=== PATIENT | male | born 1975 | race Caucasian/White ===

== ENCOUNTER 2018-04-20 14:27 | Emergency (ER) | payer MEDICAID ==
[~2018-04-20] VITALS: Ht 172.7 cm; Wt 68.2 kg
[2018-04-20 19:51] VITALS: BP 135/85
== END 2018-04-20 20:19 | disposition home or self-care (01) ==
LOC: EMS 14:30
DX: B30.9 Viral conjunctivitis, unspecified (principal); K59.00 Constipation, unspecified; F10.10 Alcohol abuse, uncomplicated; Z91.030 Bee allergy status

== ENCOUNTER 2018-04-26 11:00 | Emergency (ER) | payer MEDICAID ==
[~2018-04-26] VITALS: Ht 177.8 cm; Wt 71.8 kg
[2018-04-26] MEDS ORDERED: LIB25 PO (11:27)
[2018-04-26] MEDS ORDERED: POLYETHYLENE GLYCOL 3350 17 GM PACKET PO ONE (14:00)
[2018-04-26 14:51] VITALS: BP 134/81
== END 2018-04-26 15:02 | disposition home or self-care (01) ==
LOC: EMS 11:01
DX: K59.00 Constipation, unspecified (principal); F10.20 Alcohol dependence, uncomplicated; Z88.8 Allergy status to other drugs, medicaments and biological substances
CPT/HCPCS: 74019

== ENCOUNTER 2020-12-16 21:24 | Inpatient (IN) | payer MEDICAID ==
[~2020-12-16] VITALS: Ht 170.2 cm; Wt 77.3 kg
[~2020-12-16 21:24] MED LIST: LIB25 PO
[2020-12-16 23:48] LABS: BASOPHILS % (AUTO) 0.6 % (0.0-2.0); EOSINOPHILS % (AUTO) 0.3 % (1.0-6.0); HEMATOCRIT 46.6 % (41-53); HEMOGLOBIN 15.5 g/dL (13.5-17.5); LYMPHOCYTES # (AUTO) 2.4 K/uL (1.0-4.8); LYMPHOCYTES % (AUTO) 27.1 % (22.0-44.0); MEAN CORPUSCULAR HGB CONC 33.2 G/dL (31.0-37.0); MEAN CORPUSCULAR VOLUME 96 fL (80-100); MONOCYTES # (AUTO) 1.1 K/uL (0.1-1.0); MONOCYTES % (AUTO) 12.4 % (2.0-9.0); NEUTROPHILS # (AUTO) 5.2 K/uL (1.8-7.7); NEUTROPHILS % (AUTO) 59.6 % (40.0-70.0); PLATELET COUNT (AUTO) 290 K/uL (150-450); RED BLOOD CELL COUNT(AUTO) 4.84 MIL/uL (4.50-5.90); RED CELL DISTRIBUTION WIDTH 14.5 % (11.5-14.5)
[2020-12-16 23:57] LABS: ANION GAP 13 mmol/L (8-16); CALCIUM, TOTAL 8.8 mg/dL (8.8-10.5); CARBON DIOXIDE 31 mmol/L (22-29); CHLORIDE 97 mmol/L (98-107); CREATININE 0.81 mg/dL (0.60-1.30); GLOMERULAR FILTR. RATE CALC > 60 mL/min (>60); GLUCOSE,RANDOM 103 mg/dL (70-110); POTASSIUM 3.3 mmol/L (3.5-5.1); SODIUM SERUM 141 mmol/L (136-145); UREA NITROGEN, BLOOD 9 mg/dL (7-18)
[2020-12-17 00:03] LABS: ALANINE AMINOTRANSFERASE 202 U/L (12-78); ALBUMIN 3.8 g/dL (3.4-5.0); ALKALINE PHOSPHATASE 106 U/L (46-116); ASPARTATE AMINOTRANSFERASE 168 U/L (15-37); BILIRUBIN,TOTAL 0.9 mg/dL (0.1-1.0); TOTAL PROTEIN, SERUM 7.8 g/dL (6.4-8.2)
[2020-12-17] MEDS ORDERED: POTASSIUM CHLORIDE 20 MEQ ER TABLET PO ONE (00:15)
[2020-12-17 00:24] LABS: ACETAMINOPHEN < 2 mcg/mL (10-30); SALICYLATE < 2.8 mg/dL (2.8-20.0)
[2020-12-17] MEDS ORDERED: LORazepam 2 MG TABLET PO ONE (00:30)
[2020-12-17] MEDS ORDERED: THIAMINE 100 MG TABLET PO ONE (00:30)
[2020-12-17] MEDS ORDERED: FOLIC ACID 1 MG TABLET PO ONE (00:30)
[2020-12-17] MEDS ORDERED: HALOPERIDOL 5 MG TABLET PO PRN (00:45)
[2020-12-17] MEDS ORDERED: LORazepam 2 MG TABLET PO PRN (00:45)
[2020-12-17] MEDS ORDERED: ZOLPIDEM TARTRATE 10 MG TABLET PO PRN (00:45)
[2020-12-17] MEDS ORDERED: ONDANSETRON HCL 4 MG/2 ML VIAL IVP ONE (01:15)
[2020-12-17] MEDS ORDERED: SODIUM CHLORIDE 0.9% 1,000 ML IV ONE (01:15)
[2020-12-17] MEDS ORDERED: LORazepam 2 MG/ML VIAL IVP ONE (01:15)
[2020-12-17 01:40] LABS: COVID AG,FIA SOURCE NASOPHARYNGEAL
[2020-12-17] MEDS ORDERED: ONDANSETRON HCL 4 MG/2 ML VIAL IVP PRN (03:45)
[2020-12-17] MEDS: 1: MAGNESIUM SULFATE 2 GM, MVI, ADULT NO.1 WITH VIT K 10 ML, THIAMINE 100 MG, FOLIC ACID IV SCH ×15 (04:40→21:12)
[2020-12-17] MEDS ORDERED: MAGNESIUM OXIDE 400 MG TABLET PO PRN (06:30)
[2020-12-17] MEDS ORDERED: POTASSIUM CHLORIDE 20 MEQ ER TABLET PO PRN (06:30)
[2020-12-17] MEDS ORDERED: MAGNESIUM SULFATE 2 GM/WATER 50 ML IV PRN (06:30)
[2020-12-17] MEDS ORDERED: POTASSIUM CHL 10 MEQ/WATER 50 ML IV PRN (06:30)
[2020-12-17] MEDS ORDERED: MAGNESIUM SULFATE 4 GM/WATER 100 ML IV PRN (06:30)
[2020-12-17] MEDS: FAMOTIDINE 10 MG/ML 2 ML VIAL IVP SCH ×2 (08:10→21:12)
[2020-12-17] MEDS: HEPARIN SODIUM,PORCINE 5,000 UNITS/ML VIAL SQ SCH ×3 (08:11→23:10)
[2020-12-17] MEDS ORDERED: LORazepam 1 MG TABLET ONE (09:49)
[2020-12-17] MEDS: LORazepam 2 MG TABLET PO PRN ×5 (09:52→20:24)
[2020-12-17 11:56] LABS: CHOL/HDL RATIO 1.9 (4.2-7.3)
[2020-12-17 13:04] VITALS: BP 122/76
[2020-12-17] MEDS ORDERED: TraMADol HCL 50 MG TABLET PO PRN (15:00)
[2020-12-17 16:04] VITALS: BP 116/67
[2020-12-17] MEDS ORDERED: INFLUENZA VIRUS VACCINE QVS 2021-22 (6MO+)/PF 60 MCG/0.5 ML SYRINGE IM. ONE (19:00)
[2020-12-17 20:15] VITALS: BP 116/77
[2020-12-17] MEDS ORDERED: NICOTINE 21 MG/24 HOUR PATCH TD ONE (21:30)
[2020-12-18] MEDS: LORazepam 2 MG TABLET PO PRN ×3 (02:31→22:53)
[2020-12-18 03:15] VITALS: BP 109/72
[2020-12-18] MEDS: GuaiFENesin/D-METHORPHAN/PHENYLEPH 5 ML LIQUID ORAL.SYG PO PRN ×2 (06:17→08:43)
[2020-12-18 08:04] VITALS: BP 114/70
[2020-12-18] MEDS: LORazepam 2 MG TABLET PO SCH ×4 (08:42→20:00)
[2020-12-18] MEDS: FAMOTIDINE 10 MG/ML 2 ML VIAL IVP SCH (08:42)
[2020-12-18] MEDS: NICOTINE 21 MG/24 HOUR PATCH TD SCH (08:43)
[2020-12-18] MEDS: HEPARIN SODIUM,PORCINE 5,000 UNITS/ML VIAL SQ SCH ×3 (08:43→23:41)
[2020-12-18 16:17] VITALS: BP 121/78
[2020-12-18] MEDS ORDERED: SODIUM CHLORIDE 0.9% 1,000 ML ONE (16:20)
[2020-12-18] MEDS: 1: MAGNESIUM SULFATE 2 GM, MVI, ADULT NO.1 WITH VIT K 10 ML, THIAMINE 100 MG, FOLIC ACID IV SCH ×10 (16:27→20:01)
[2020-12-18 19:30] VITALS: BP 119/73
[2020-12-18] MEDS: FAMOTIDINE 20 MG TABLET PO SCH (20:00)
[2020-12-19] MEDS: LORazepam 2 MG TABLET PO PRN ×2 (02:36→06:37)
[2020-12-19 04:00] VITALS: BP 113/74
[2020-12-19] MEDS: 1: MAGNESIUM SULFATE 2 GM, MVI, ADULT NO.1 WITH VIT K 10 ML, THIAMINE 100 MG, FOLIC ACID IV SCH ×10 (06:20→10:50)
[2020-12-19 07:50] LABS: MAGNESIUM 2.2 mg/dL (1.80-2.40); POTASSIUM 3.4 mmol/L (3.5-5.1)
[2020-12-19 07:51] VITALS: BP 118/76
[2020-12-19] MEDS: LORazepam 2 MG TABLET PO SCH ×4 (08:24→20:34)
[2020-12-19] MEDS: FAMOTIDINE 20 MG TABLET PO SCH ×2 (08:24→20:35)
[2020-12-19] MEDS: HEPARIN SODIUM,PORCINE 5,000 UNITS/ML VIAL SQ SCH ×3 (08:24→23:53)
[2020-12-19] MEDS: NICOTINE 21 MG/24 HOUR PATCH TD SCH (08:28)
[2020-12-19] MEDS: GuaiFENesin/D-METHORPHAN/PHENYLEPH 5 ML LIQUID ORAL.SYG PO PRN (12:00)
[2020-12-19 15:32] VITALS: BP 125/76
[2020-12-19] MEDS ORDERED: TraZODone HCL 50 MG TABLET PO PRN ×2 (16:15→18:15)
[2020-12-19 20:02] VITALS: BP 118/78
[2020-12-20] MEDS: LORazepam 2 MG TABLET PO PRN (00:03)
[2020-12-20] MEDS: 1: MAGNESIUM SULFATE 2 GM, MVI, ADULT NO.1 WITH VIT K 10 ML, THIAMINE 100 MG, FOLIC ACID IV SCH ×5 (05:00)
[2020-12-20] MEDS ORDERED: LORazepam 1 MG TABLET PO PRN (07:00)
[2020-12-20 07:35] VITALS: BP 124/68
[2020-12-20] MEDS ORDERED: LORazepam 1 MG TABLET PO SCH (09:00)
[2020-12-20] MEDS: FAMOTIDINE 20 MG TABLET PO SCH (10:13)
[2020-12-20] MEDS: HEPARIN SODIUM,PORCINE 5,000 UNITS/ML VIAL SQ SCH ×2 (10:14→16:00)
[2020-12-20] MEDS: NICOTINE 21 MG/24 HOUR PATCH TD SCH (10:14)
[2020-12-20 12:29] LABS: COVID AG,FIA SOURCE NASAL SWAB
[2020-12-20 15:24] VITALS: BP 104/60
[2020-12-21] MEDS ORDERED: LORazepam 1 MG TABLET PO PRN (07:00)
== END 2020-12-20 16:20 | DRG 775 ==
LOC: EMS 21:33 → UNDOADMIN 12-17 00:30 → 3EI 12-17 00:30 → AHU 12-17 11:08 → 6N 12-17 12:55
PROVIDERS: ADMIT Internal Medicine; ATTEND Internal Medicine
DX: F10.139 Alcohol abuse with withdrawal, unspecified (principal); R45.851 Suicidal ideations; K70.10 Alcoholic hepatitis without ascites; F22 Delusional disorders; F32.9 Major depressive disorder, single episode, unspecified; R29.6 Repeated falls; Z20.822 Contact with and (suspected) exposure to COVID-19; F15.90 Other stimulant use, unspecified, uncomplicated; Y90.2 Blood alcohol level of 40-59 mg/100 ml; F41.1 Generalized anxiety disorder; Z87.891 Personal history of nicotine dependence
CPT/HCPCS: 70450; 71045; 72125; 80053; 80061; 82040; 83735; 84132; 85025; 97162; 97166; 97530; 97535; 99285; G0480; G0481; J1644; J2060; J2405; J3411; J3475; J3490; J7030; 36415-L1; 36415-TC

== ENCOUNTER 2020-12-18 23:08 | Inpatient (IN) | payer MEDICAID ==
[~2020-12-18] VITALS: Ht 172.7 cm; Wt 68.0 kg
[2020-12-20 16:30] VITALS: BP 114/73
[2020-12-20] MEDS: LORazepam 2 MG TABLET PO PRN ×2 (17:01→22:10)
[2020-12-20] MEDS: ZOLPIDEM TARTRATE 10 MG TABLET PO PRN (19:55)
[2020-12-20 22:00] VITALS: BP 135/81
[2020-12-21] MEDS ORDERED: IBUPROFEN 600 MG TABLET PO PRN (08:00)
[2020-12-21] MEDS ORDERED: LOPERAMIDE HCL 2 MG CAPSULE PO PRN (08:00)
[2020-12-21] MEDS ORDERED: MAGNESIUM HYDROXIDE SUSPENSION 30 ML UDCUP PO PRN (08:00)
[2020-12-21] MEDS ORDERED: OMEPRAZOLE 20 MG CAPSULE PO PRN (08:00)
[2020-12-21] MEDS ORDERED: CloNIDine HCL 0.1 MG TABLET PO PRN (08:00)
[2020-12-21] MEDS ORDERED: ALBUTEROL SULFATE HFA 90 MCG/PUFF 8 GM INHALER IH PRN (08:00)
[2020-12-21] MEDS ORDERED: BACITRACIN 28 GM OINTMENT TP PRN (08:00)
[2020-12-21] MEDS ORDERED: PETROLATUM,WHITE 28 GM JELLY TP PRN (08:00)
[2020-12-21] MEDS ORDERED: MAG HYDROX/AL HYDROX/SIMETH ES 30 ML SUSPENSION UDCUP PO PRN (08:00)
[2020-12-21] MEDS ORDERED: ACETAMINOPHEN 325 MG TABLET PO PRN (08:00)
[2020-12-21] MEDS ORDERED: BENZOCAINE/MENTHOL LOZENGE PO PRN (08:00)
[2020-12-21] MEDS ORDERED: ONDANSETRON HCL 4 MG TABLET PO PRN (08:00)
[2020-12-21] MEDS ORDERED: DOCUSATE SODIUM 100 MG CAPSULE PO PRN (08:00)
[2020-12-21 08:14] LABS: FREE T4 (FREE THYROXINE) 1.04 ng/dL (0.76-1.46); THYROID STIMULATING HORMONE 1.24 uIU/mL (0.36-3.74)
[2020-12-21] MEDS: HALOPERIDOL 5 MG TABLET PO PRN (08:14)
[2020-12-21] MEDS: LORazepam 2 MG TABLET PO PRN ×2 (08:14→14:46)
[2020-12-21] MEDS: NICOTINE 21 MG/24 HOUR PATCH TD SCH (09:09)
[2020-12-21 09:14] VITALS: BP 127/71
[2020-12-21] MEDS: GABAPENTIN 300 MG CAPSULE PO SCH ×2 (12:39→16:07)
[2020-12-21 16:00] VITALS: BP 125/81
[2020-12-21] MEDS ORDERED: TraZODone HCL 100 MG TABLET PO SCH (21:00)
[2020-12-22] MEDS: GABAPENTIN 300 MG CAPSULE PO SCH ×3 (08:09→16:52)
[2020-12-22] MEDS: LORazepam 2 MG TABLET PO PRN ×4 (08:09→21:13)
[2020-12-22] MEDS: NICOTINE 21 MG/24 HOUR PATCH TD SCH (08:11)
[2020-12-22 09:27] VITALS: BP 109/59
[2020-12-22 12:30] VITALS: BP 96/56
[2020-12-22 16:33] VITALS: BP 112/71
[2020-12-22] MEDS: TraZODone HCL 150 MG TABLET PO SCH (20:56)
[2020-12-23 05:09] VITALS: BP 98/67
[2020-12-23] MEDS: LORazepam 2 MG TABLET PO PRN ×4 (05:30→19:19)
[2020-12-23] MEDS: NICOTINE 21 MG/24 HOUR PATCH TD SCH (08:02)
[2020-12-23] MEDS: GABAPENTIN 300 MG CAPSULE PO SCH ×3 (08:02→16:06)
[2020-12-23 08:30] VITALS: BP 101/64
[2020-12-23 16:00] VITALS: BP 99/81
[2020-12-23] MEDS: TraZODone HCL 150 MG TABLET PO SCH (20:11)
[2020-12-24 03:27] VITALS: BP 94/66
[2020-12-24] MEDS: LORazepam 2 MG TABLET PO PRN ×4 (03:29→17:54)
[2020-12-24] MEDS: GABAPENTIN 300 MG CAPSULE PO SCH ×3 (08:52→16:12)
[2020-12-24] MEDS: NICOTINE 21 MG/24 HOUR PATCH TD SCH (08:56)
[2020-12-24 09:34] VITALS: BP 111/67
[2020-12-24 16:53] VITALS: BP 103/71
[2020-12-24] MEDS: TraZODone HCL 150 MG TABLET PO SCH (20:00)
[2020-12-25 03:25] VITALS: BP 132/77
[2020-12-25] MEDS: LORazepam 2 MG TABLET PO PRN ×4 (03:43→20:00)
[2020-12-25 08:00] VITALS: BP 103/59
[2020-12-25 08:15] VITALS: BP 103/59
[2020-12-25] MEDS: NICOTINE 21 MG/24 HOUR PATCH TD SCH (08:36)
[2020-12-25] MEDS: GABAPENTIN 300 MG CAPSULE PO SCH ×3 (08:36→17:15)
[2020-12-25] MEDS: HALOPERIDOL 5 MG TABLET PO PRN (11:09)
[2020-12-25 16:46] VITALS: BP 128/79
[2020-12-25] MEDS: TraZODone HCL 150 MG TABLET PO SCH (20:24)
[2020-12-26] MEDS: LORazepam 2 MG TABLET PO PRN ×5 (05:02→18:49)
[2020-12-26 06:01] VITALS: BP 84/52
[2020-12-26 06:40] VITALS: BP 96/62
[2020-12-26 08:00] VITALS: BP 100/60
[2020-12-26] MEDS: NICOTINE 21 MG/24 HOUR PATCH TD SCH (08:48)
[2020-12-26] MEDS: GABAPENTIN 300 MG CAPSULE PO SCH ×3 (08:49→17:02)
[2020-12-26 09:36] LABS: COVID AG,FIA SOURCE NASAL SWAB
[2020-12-26 16:15] VITALS: BP 121/68
[2020-12-26] MEDS: ZOLPIDEM TARTRATE 10 MG TABLET PO PRN ×2 (21:10→22:03)
[2020-12-26] MEDS: TraZODone HCL 150 MG TABLET PO SCH (21:18)
[2020-12-27] MEDS: LORazepam 2 MG TABLET PO PRN ×2 (03:01→08:54)
[2020-12-27] MEDS: HALOPERIDOL 5 MG TABLET PO PRN ×2 (03:01→08:54)
[2020-12-27 08:00] VITALS: BP 96/56
[2020-12-27] MEDS: GABAPENTIN 300 MG CAPSULE PO SCH (08:10)
[2020-12-27] MEDS: NICOTINE 21 MG/24 HOUR PATCH TD SCH (08:10)
[2020-12-27] MEDS ORDERED: GABA-1181 PO (10:37)
[2020-12-27] MEDS ORDERED: TRAZ150T80 PO (10:42)
== END 2020-12-27 11:15 | disposition home or self-care (01) | DRG 753 ==
LOC: 3EI 12-20 16:25
PROVIDERS: ADMIT Psychiatry & Neurology Psychiatry; ATTEND Psychiatry & Neurology Psychiatry
DX: F31.9 Bipolar disorder, unspecified (principal); F22 Delusional disorders; R45.851 Suicidal ideations; F10.10 Alcohol abuse, uncomplicated; Z20.822 Contact with and (suspected) exposure to COVID-19; F41.9 Anxiety disorder, unspecified; K59.00 Constipation, unspecified; J44.9 Chronic obstructive pulmonary disease, unspecified; I10 Essential (primary) hypertension; G47.00 Insomnia, unspecified; Z71.6 Tobacco abuse counseling; Z72.0 Tobacco use
CPT/HCPCS: 80061; 84439; 84443; 87081

== ENCOUNTER 2021-04-05 13:17 | Inpatient (IN) | payer MEDICAID ==
[~2021-04-05] VITALS: Ht 172.7 cm; Wt 75.5 kg
[~2021-04-05 13:17] MED LIST changes: +GABA-1181 PO; -LIB25 PO; +TRAZ150T80 PO
[2021-04-05 18:58] LABS: BASOPHILS % (AUTO) 0.9 % (0.0-2.0); EOSINOPHILS % (AUTO) 1.9 % (1.0-6.0); HEMATOCRIT 40.9 % (41-53); HEMOGLOBIN 14.2 g/dL (13.5-17.5); LYMPHOCYTES # (AUTO) 4.8 K/uL (1.0-4.8); MEAN CORPUSCULAR HGB CONC 34.7 G/dL (31.0-37.0); MEAN CORPUSCULAR VOLUME 95 fL (80-100); MONOCYTES # (AUTO) 0.6 K/uL (0.1-1.0); MONOCYTES % (AUTO) 6.8 % (2.0-9.0); NEUTROPHILS # (AUTO) 3.2 K/uL (1.8-7.7); NEUTROPHILS % (AUTO) 36.4 % (40.0-70.0); PLATELET COUNT (AUTO) 474 K/uL (150-450); RED BLOOD CELL COUNT(AUTO) 4.31 MIL/uL (4.50-5.90); RED CELL DISTRIBUTION WIDTH 13.9 % (11.5-14.5)
[2021-04-05 19:06] LABS: ANION GAP 12 mmol/L (8-16); CALCIUM, TOTAL 8.6 mg/dL (8.8-10.5); CARBON DIOXIDE 25 mmol/L (22-29); CHLORIDE 105 mmol/L (98-107); CREATININE 0.87 mg/dL (0.60-1.30); GLOMERULAR FILTR. RATE CALC > 60 mL/min (>60); GLUCOSE,RANDOM 86 mg/dL (70-110); POTASSIUM 3.7 mmol/L (3.5-5.1); SODIUM SERUM 142 mmol/L (136-145); UREA NITROGEN, BLOOD 9 mg/dL (7-18)
[2021-04-05 19:11] LABS: ALANINE AMINOTRANSFERASE 27 U/L (12-78); ALBUMIN 3.2 g/dL (3.4-5.0); ALKALINE PHOSPHATASE 58 U/L (46-116); ASPARTATE AMINOTRANSFERASE 19 U/L (15-37); BILIRUBIN,TOTAL 0.3 mg/dL (0.1-1.0); TOTAL PROTEIN, SERUM 7.5 g/dL (6.4-8.2)
[2021-04-05] MEDS ORDERED: LORazepam 1 MG TABLET PO ONE (19:15)
[2021-04-05 19:26] LABS: AMPHET/METH SCREEN,URINE NEGATIVE (NEGATIVE); BARBITURATE SCREEN, URINE NEGATIVE (NEGATIVE); BENZODIAZEPINES SCREEN,URINE NEGATIVE (NEGATIVE); CANNABINOID SCREEN,URINE NEGATIVE (NEGATIVE); COCAINE SCREEN,URINE NEGATIVE (NEGATIVE); METHADONE SCREEN, URINE NEGATIVE (NEGATIVE); OPIATE SCREEN,URINE NEGATIVE (NEGATIVE); PHENCYCLIDINE SCREEN,URINE NEGATIVE (NEGATIVE)
[2021-04-05] MEDS ORDERED: ONDANSETRON HCL 4 MG TABLET PO PRN (20:00)
[2021-04-05] MEDS ORDERED: ONDANSETRON HCL 4 MG/2 ML VIAL PO PRN (20:00)
[2021-04-05] MEDS ORDERED: ZOLPIDEM TARTRATE 10 MG TABLET PO PRN (21:00)
[2021-04-05] MEDS ORDERED: LORazepam 2 MG TABLET PO PRN (21:15)
[2021-04-06 01:02] LABS: APPEARANCE,URINE CLEAR (CLEAR); BILIRUBIN,URINE NEGATIVE (NEGATIVE); GLUCOSE, URINE (UA) NEGATIVE (NEGATIVE); KETONES,URINE 15 mg/dL (NEGATIVE); LEUKOCYTE ESTERASE ,URINE NEGATIVE (NEGATIVE); NITRATE,URINE NEGATIVE (NEGATIVE); OCCULT BLOOD,URINE NEGATIVE (NEGATIVE); PH,URINE 7.5 (5.0-8.0); PROTEIN,URINE NEGATIVE (NEGATIVE)
[2021-04-06 01:06] LABS: CHOL/HDL RATIO 3.3 (4.2-7.3); CHOLESTEROL 154 mg/dL (131-200); HDL CHOLESTEROL 46 mg/dL (40-60); LDL CHOL (CALC.) 89 mg/dL (0-130); TRIGLYCERIDES 97 mg/dL (15-150)
[2021-04-06] MEDS: QUEtiapine FUMARATE 100 MG TABLET PO PRN ×2 (02:21→17:07)
[2021-04-06] MEDS ORDERED: LORazepam 2 MG TABLET PO PRN (07:00)
[2021-04-06] MEDS: LORazepam 2 MG TABLET PO SCH ×4 (08:21→20:49)
[2021-04-06] MEDS: MULTIVITAMINS, THERAPEUTIC TABLET PO SCH (08:22)
[2021-04-06 08:50] LABS: COVID AG,FIA SOURCE NASAL SWAB
[2021-04-06] MEDS ORDERED: FOLIC ACID 1 MG TABLET PO SCH (09:00)
[2021-04-06] MEDS: THIAMINE 100 MG TABLET PO SCH (09:49)
[2021-04-06 12:01] VITALS: BP 103/75
[2021-04-06 12:02] VITALS: BP 103/75
[2021-04-06] MEDS ORDERED: INFLUENZA VIRUS VACCINE QVS 2021-22 (6MO+)/PF 60 MCG/0.5 ML SYRINGE IM. ONE (15:15)
[2021-04-06] MEDS ORDERED: PNEUMOCOCCAL VACCINE POLYVALENT 0.5 ML VIAL [PPSV23] IM. ONE (15:15)
[2021-04-06 16:00] VITALS: BP 108/59
[2021-04-06 16:14] VITALS: BP 108/59
[2021-04-06] MEDS: FOLIC ACID 1 MG TABLET PO SCH (17:07)
[2021-04-06 20:01] VITALS: BP 101/61
[2021-04-07 06:16] VITALS: BP 102/67
[2021-04-07 08:16] VITALS: BP 130/82
[2021-04-07] MEDS: THIAMINE 100 MG TABLET PO SCH (08:20)
[2021-04-07] MEDS: MULTIVITAMINS, THERAPEUTIC TABLET PO SCH (08:20)
[2021-04-07] MEDS: FOLIC ACID 1 MG TABLET PO SCH (08:20)
[2021-04-07] MEDS: LORazepam 2 MG TABLET PO SCH ×4 (08:20→20:27)
[2021-04-07] MEDS: QUEtiapine FUMARATE 100 MG TABLET PO PRN (08:20)
[2021-04-07 09:41] VITALS: BP 130/82
[2021-04-07] MEDS: GABAPENTIN 300 MG CAPSULE PO SCH ×2 (12:49→16:41)
[2021-04-07 13:15] VITALS: BP 84/57
[2021-04-07 16:09] VITALS: BP 102/62
[2021-04-07] MEDS: TraZODone HCL 150 MG TABLET PO SCH (20:28)
[2021-04-08 05:11] VITALS: BP 108/67
[2021-04-08] MEDS ORDERED: LORazepam 1 MG TABLET PO PRN (07:00)
[2021-04-08 08:15] VITALS: BP 99/63
[2021-04-08] MEDS: FOLIC ACID 1 MG TABLET PO SCH (08:23)
[2021-04-08] MEDS: GABAPENTIN 300 MG CAPSULE PO SCH ×3 (08:23→16:44)
[2021-04-08] MEDS: MULTIVITAMINS, THERAPEUTIC TABLET PO SCH (08:23)
[2021-04-08] MEDS: LORazepam 1 MG TABLET PO SCH ×4 (08:24→20:35)
[2021-04-08] MEDS: THIAMINE 100 MG TABLET PO SCH (08:51)
[2021-04-08] MEDS: QUEtiapine FUMARATE 100 MG TABLET PO PRN (12:42)
[2021-04-08 16:06] VITALS: BP 106/78
[2021-04-08] MEDS: HALOPERIDOL 5 MG TABLET PO PRN (16:45)
[2021-04-08] MEDS: TraZODone HCL 150 MG TABLET PO SCH (20:35)
[2021-04-09 05:25] VITALS: BP 109/69
[2021-04-09 08:18] VITALS: BP 100/60
[2021-04-09] MEDS: THIAMINE 100 MG TABLET PO SCH (08:51)
[2021-04-09] MEDS: FOLIC ACID 1 MG TABLET PO SCH (08:51)
[2021-04-09] MEDS: MULTIVITAMINS, THERAPEUTIC TABLET PO SCH (08:51)
[2021-04-09] MEDS: GABAPENTIN 300 MG CAPSULE PO SCH ×3 (08:52→16:21)
[2021-04-09] MEDS: LORazepam 1 MG TABLET PO PRN ×2 (12:18→16:21)
[2021-04-09 16:00] VITALS: BP 110/64
[2021-04-09] MEDS: HALOPERIDOL 5 MG TABLET PO PRN (16:21)
[2021-04-09 16:34] VITALS: BP 110/64
[2021-04-09] MEDS: TraZODone HCL 150 MG TABLET PO SCH (20:15)
[2021-04-10 01:15] VITALS: BP 113/69
[2021-04-10] MEDS: GABAPENTIN 300 MG CAPSULE PO SCH ×3 (08:04→16:05)
[2021-04-10] MEDS: THIAMINE 100 MG TABLET PO SCH (08:04)
[2021-04-10] MEDS: MULTIVITAMINS, THERAPEUTIC TABLET PO SCH (08:04)
[2021-04-10] MEDS: FOLIC ACID 1 MG TABLET PO SCH (08:06)
[2021-04-10] MEDS: HydrOXYzine PAMOATE 50 MG CAPSULE PO PRN ×2 (08:35→13:39)
[2021-04-10 08:41] VITALS: BP 104/52
[2021-04-10 09:22] VITALS: BP 104/52
[2021-04-10] MEDS: NICOTINE POLACRILEX 2 MG LOZENGE PO PRN ×2 (10:32→16:35)
[2021-04-10 16:34] VITALS: BP 101/60
[2021-04-10] MEDS: HALOPERIDOL 5 MG TABLET PO PRN (16:36)
[2021-04-10 16:51] VITALS: BP 101/60
[2021-04-10] MEDS: TraZODone HCL 150 MG TABLET PO SCH (20:08)
[2021-04-11 00:55] VITALS: BP 109/62
[2021-04-11 01:00] VITALS: BP 109/62
[2021-04-11] MEDS: MULTIVITAMINS, THERAPEUTIC TABLET PO SCH (08:09)
[2021-04-11] MEDS: NICOTINE POLACRILEX 2 MG LOZENGE PO PRN ×2 (08:09→16:03)
[2021-04-11] MEDS: THIAMINE 100 MG TABLET PO SCH (08:09)
[2021-04-11] MEDS: SERTRALINE HCL 50 MG TABLET PO SCH (08:09)
[2021-04-11] MEDS: FOLIC ACID 1 MG TABLET PO SCH (08:09)
[2021-04-11] MEDS: GABAPENTIN 300 MG CAPSULE PO SCH ×3 (08:09→16:03)
[2021-04-11 08:22] VITALS: BP 100/69
[2021-04-11] MEDS: HALOPERIDOL 5 MG TABLET PO PRN ×2 (08:36→16:03)
[2021-04-11 16:26] VITALS: BP 104/73
[2021-04-11] MEDS: TraZODone HCL 150 MG TABLET PO SCH (20:23)
[2021-04-12 01:44] VITALS: BP 108/70
[2021-04-12 08:14] VITALS: BP 92/56
[2021-04-12] MEDS: SERTRALINE HCL 50 MG TABLET PO SCH (08:29)
[2021-04-12] MEDS: MULTIVITAMINS, THERAPEUTIC TABLET PO SCH (08:29)
[2021-04-12] MEDS: GABAPENTIN 300 MG CAPSULE PO SCH ×3 (08:29→16:34)
[2021-04-12] MEDS: THIAMINE 100 MG TABLET PO SCH (08:29)
[2021-04-12] MEDS: FOLIC ACID 1 MG TABLET PO SCH (08:29)
[2021-04-12] MEDS: NICOTINE POLACRILEX 2 MG LOZENGE PO PRN ×2 (08:29→16:17)
[2021-04-12] MEDS: HALOPERIDOL 5 MG TABLET PO PRN ×2 (08:44→20:04)
[2021-04-12] MEDS: HydrOXYzine PAMOATE 50 MG CAPSULE PO PRN (11:04)
[2021-04-12 16:25] VITALS: BP 101/65
[2021-04-12] MEDS: TraZODone HCL 150 MG TABLET PO SCH (20:32)
[2021-04-13 01:15] VITALS: BP 104/62
[2021-04-13] MEDS: FOLIC ACID 1 MG TABLET PO SCH (08:09)
[2021-04-13] MEDS: GABAPENTIN 300 MG CAPSULE PO SCH ×3 (08:09→16:32)
[2021-04-13] MEDS: SERTRALINE HCL 50 MG TABLET PO SCH (08:09)
[2021-04-13] MEDS: THIAMINE 100 MG TABLET PO SCH (08:09)
[2021-04-13] MEDS: MULTIVITAMINS, THERAPEUTIC TABLET PO SCH (08:09)
[2021-04-13] MEDS: NICOTINE POLACRILEX 2 MG LOZENGE PO PRN ×2 (08:10→15:09)
[2021-04-13 08:22] VITALS: BP 112/66
[2021-04-13] MEDS: HydrOXYzine PAMOATE 50 MG CAPSULE PO PRN (08:32)
[2021-04-13] MEDS: HALOPERIDOL 5 MG TABLET PO PRN (08:32)
[2021-04-13 09:06] LABS: GLUCOMETER DEV NAME(LOC) POC.BV
[2021-04-13 16:22] VITALS: BP 108/69
[2021-04-13] MEDS: TraZODone HCL 150 MG TABLET PO SCH (20:30)
[2021-04-14 04:22] VITALS: BP 114/69
[2021-04-14 08:22] VITALS: BP 105/62
[2021-04-14] MEDS: FOLIC ACID 1 MG TABLET PO SCH (09:04)
[2021-04-14] MEDS: GABAPENTIN 300 MG CAPSULE PO SCH ×3 (09:04→16:32)
[2021-04-14] MEDS: THIAMINE 100 MG TABLET PO SCH (09:04)
[2021-04-14] MEDS: SERTRALINE HCL 50 MG TABLET PO SCH (09:04)
[2021-04-14] MEDS: MULTIVITAMINS, THERAPEUTIC TABLET PO SCH (09:04)
[2021-04-14] MEDS: HALOPERIDOL 5 MG TABLET PO PRN ×2 (09:12→20:07)
[2021-04-14] MEDS: HydrOXYzine PAMOATE 50 MG CAPSULE PO PRN (09:12)
[2021-04-14] MEDS: NICOTINE POLACRILEX 2 MG LOZENGE PO PRN ×2 (10:36→17:10)
[2021-04-14 16:21] VITALS: BP 103/64
[2021-04-14] MEDS: TraZODone HCL 150 MG TABLET PO SCH (20:50)
[2021-04-15 00:52] VITALS: BP 111/72
[2021-04-15] MEDS: GABAPENTIN 300 MG CAPSULE PO SCH ×3 (08:50→16:29)
[2021-04-15] MEDS: MULTIVITAMINS, THERAPEUTIC TABLET PO SCH (08:50)
[2021-04-15] MEDS: SERTRALINE HCL 50 MG TABLET PO SCH (08:51)
[2021-04-15] MEDS: THIAMINE 100 MG TABLET PO SCH (08:51)
[2021-04-15] MEDS: FOLIC ACID 1 MG TABLET PO SCH (08:51)
[2021-04-15] MEDS: HydrOXYzine PAMOATE 50 MG CAPSULE PO PRN ×2 (09:14→16:30)
[2021-04-15] MEDS: NICOTINE POLACRILEX 2 MG LOZENGE PO PRN ×2 (09:14→16:33)
[2021-04-15] MEDS: HALOPERIDOL 5 MG TABLET PO PRN ×2 (09:14→16:30)
[2021-04-15 09:56] VITALS: BP 104/64
[2021-04-15 16:11] VITALS: BP 110/74
[2021-04-15] MEDS: TraZODone HCL 150 MG TABLET PO SCH (20:19)
[2021-04-16 00:54] VITALS: BP 106/70
[2021-04-16 08:28] VITALS: BP 113/75
[2021-04-16] MEDS: SERTRALINE HCL 50 MG TABLET PO SCH (08:45)
[2021-04-16] MEDS: FOLIC ACID 1 MG TABLET PO SCH (08:45)
[2021-04-16] MEDS: THIAMINE 100 MG TABLET PO SCH (08:45)
[2021-04-16] MEDS: MULTIVITAMINS, THERAPEUTIC TABLET PO SCH (08:45)
[2021-04-16] MEDS: GABAPENTIN 300 MG CAPSULE PO SCH ×3 (08:45→16:09)
[2021-04-16] MEDS: HALOPERIDOL 5 MG TABLET PO PRN (08:53)
[2021-04-16] MEDS: NICOTINE POLACRILEX 2 MG LOZENGE PO PRN ×2 (08:53→16:09)
[2021-04-16 16:22] VITALS: BP 102/72
[2021-04-16] MEDS: TraZODone HCL 150 MG TABLET PO SCH (20:12)
[2021-04-17 01:20] VITALS: BP 109/70
[2021-04-17] MEDS: THIAMINE 100 MG TABLET PO SCH (08:54)
[2021-04-17] MEDS: SERTRALINE HCL 50 MG TABLET PO SCH (08:54)
[2021-04-17] MEDS: FOLIC ACID 1 MG TABLET PO SCH (08:54)
[2021-04-17] MEDS: MULTIVITAMINS, THERAPEUTIC TABLET PO SCH (08:54)
[2021-04-17] MEDS: NICOTINE POLACRILEX 2 MG LOZENGE PO PRN ×2 (08:55→15:10)
[2021-04-17] MEDS: GABAPENTIN 300 MG CAPSULE PO SCH ×3 (08:55→16:54)
[2021-04-17] MEDS: HALOPERIDOL 5 MG TABLET PO PRN (08:55)
[2021-04-17 09:27] VITALS: BP 102/60
[2021-04-17 16:19] VITALS: BP 113/68
[2021-04-17] MEDS: TraZODone HCL 150 MG TABLET PO SCH (20:04)
[2021-04-18 06:00] VITALS: BP 107/67
[2021-04-18] MEDS: GABAPENTIN 300 MG CAPSULE PO SCH ×3 (08:02→16:48)
[2021-04-18] MEDS: MULTIVITAMINS, THERAPEUTIC TABLET PO SCH (08:02)
[2021-04-18] MEDS: FOLIC ACID 1 MG TABLET PO SCH (08:02)
[2021-04-18] MEDS: THIAMINE 100 MG TABLET PO SCH (08:02)
[2021-04-18] MEDS: SERTRALINE HCL 50 MG TABLET PO SCH (08:02)
[2021-04-18] MEDS: NICOTINE POLACRILEX 2 MG LOZENGE PO PRN ×2 (08:03→18:03)
[2021-04-18] MEDS: HALOPERIDOL 5 MG TABLET PO PRN (08:05)
[2021-04-18 08:45] VITALS: BP 98/60
[2021-04-18 16:13] VITALS: BP 105/67
[2021-04-18] MEDS: TraZODone HCL 150 MG TABLET PO SCH (20:38)
[2021-04-19 06:16] VITALS: BP 110/64
[2021-04-19] MEDS: HALOPERIDOL 5 MG TABLET PO PRN (08:08)
[2021-04-19] MEDS: NICOTINE POLACRILEX 2 MG LOZENGE PO PRN ×2 (08:08→16:09)
[2021-04-19] MEDS: THIAMINE 100 MG TABLET PO SCH (08:08)
[2021-04-19] MEDS: GABAPENTIN 300 MG CAPSULE PO SCH ×3 (08:08→16:09)
[2021-04-19] MEDS: MULTIVITAMINS, THERAPEUTIC TABLET PO SCH (08:09)
[2021-04-19] MEDS: SERTRALINE HCL 50 MG TABLET PO SCH (08:09)
[2021-04-19] MEDS: FOLIC ACID 1 MG TABLET PO SCH (08:09)
[2021-04-19 08:34] VITALS: BP 105/64
[2021-04-19 16:36] VITALS: BP 103/64
[2021-04-19] MEDS: TraZODone HCL 150 MG TABLET PO SCH (20:07)
[2021-04-20 01:00] VITALS: BP 106/67
[2021-04-20 08:32] VITALS: BP 96/62
[2021-04-20] MEDS: HALOPERIDOL 5 MG TABLET PO PRN (08:32)
[2021-04-20] MEDS: GABAPENTIN 300 MG CAPSULE PO SCH ×3 (08:32→16:07)
[2021-04-20] MEDS: SERTRALINE HCL 50 MG TABLET PO SCH (08:32)
[2021-04-20] MEDS: FOLIC ACID 1 MG TABLET PO SCH (08:32)
[2021-04-20] MEDS: MULTIVITAMINS, THERAPEUTIC TABLET PO SCH (08:32)
[2021-04-20] MEDS: THIAMINE 100 MG TABLET PO SCH (08:32)
[2021-04-20] MEDS: NICOTINE POLACRILEX 2 MG LOZENGE PO PRN ×2 (08:35→16:07)
[2021-04-20 10:46] LABS: GLUCOMETER DEV NAME(LOC) POC.BV
[2021-04-20 16:17] VITALS: BP 109/58
[2021-04-20] MEDS: TraZODone HCL 150 MG TABLET PO SCH (20:05)
[2021-04-21 00:50] VITALS: BP 108/67
[2021-04-21] MEDS: SERTRALINE HCL 50 MG TABLET PO SCH (08:11)
[2021-04-21] MEDS: FOLIC ACID 1 MG TABLET PO SCH (08:11)
[2021-04-21] MEDS: THIAMINE 100 MG TABLET PO SCH (08:11)
[2021-04-21] MEDS: GABAPENTIN 300 MG CAPSULE PO SCH (08:11)
[2021-04-21] MEDS: MULTIVITAMINS, THERAPEUTIC TABLET PO SCH (08:11)
[2021-04-21 08:43] VITALS: BP 107/65
[2021-04-21] MEDS ORDERED: GABA-1181 PO (09:47)
[2021-04-21] MEDS ORDERED: SERT-439 PO (09:47)
[2021-04-21] MEDS ORDERED: TRAZ150T80 PO (09:47)
== END 2021-04-21 08:15 | disposition home or self-care (01) | DRG 753 ==
LOC: EMS 13:47 → B3A 04-06 06:00 → B2S 04-09 14:05
PROVIDERS: ADMIT Psychiatry & Neurology Psychiatry; ATTEND Psychiatry & Neurology Psychiatry
DX: F31.4 Bipolar disorder, current episode depressed, severe, without psychotic features (principal); R45.851 Suicidal ideations; I95.9 Hypotension, unspecified; F15.90 Other stimulant use, unspecified, uncomplicated; F41.9 Anxiety disorder, unspecified; I10 Essential (primary) hypertension; F10.120 Alcohol abuse with intoxication, uncomplicated; F10.139 Alcohol abuse with withdrawal, unspecified; J44.9 Chronic obstructive pulmonary disease, unspecified; Y90.0 Blood alcohol level of less than 20 mg/100 ml; Z91.030 Bee allergy status; Z59.00 Homelessness unspecified; Z79.899 Other long term (current) drug therapy; Z91.51 Personal history of suicidal behavior; Z20.822 Contact with and (suspected) exposure to COVID-19
CPT/HCPCS: 80053; 80061; 81003; 85025; 99285; G0480; J2405; Q0162; Q9967

== ENCOUNTER 2022-03-02 13:32 | Emergency (ER) | payer MEDICAID ==
[~2022-03-02] VITALS: Ht 167.6 cm; Wt 84.1 kg
[~2022-03-02 13:32] MED LIST changes: +SERT-439 PO
[2022-03-02 13:37] VITALS: BP 106/73
[2022-03-02] MEDS ORDERED: TraMADol HCL 50 MG TABLET PO ONE (16:15)
== END 2022-03-02 16:28 | disposition home or self-care (01) ==
LOC: EMS 13:36
DX: M79.675 Pain in left toe(s) (principal); F10.20 Alcohol dependence, uncomplicated; F15.90 Other stimulant use, unspecified, uncomplicated; Z90.49 Acquired absence of other specified parts of digestive tract; X58.XXXA Exposure to other specified factors, initial encounter; Y93.89 Activity, other specified; Y92.89 Other specified places as the place of occurrence of the external cause; Y99.8 Other external cause status
CPT/HCPCS: 99283

== ENCOUNTER 2022-07-04 22:44 | Emergency (ER) | payer MEDICAID ==
[~2022-07-04] VITALS: Ht 172.7 cm; Wt 73.0 kg
[2022-07-04] MEDS ORDERED: DiphenhydrAMINE HCL 50 MG/ML VIAL IM ONE (23:15)
[2022-07-04] MEDS ORDERED: LORazepam 2 MG/ML VIAL IM ONE (23:15)
[2022-07-04] MEDS ORDERED: HALOPERIDOL LACTATE 5 MG/ML VIAL IM ONE (23:15)
[2022-07-05] MEDS ORDERED: PERTUSS(ACELL),DIPH,TET VAC/PF 0.5 ML SYRINGE IM. ONE (00:15)
[2022-07-05 00:21] VITALS: BP 101/70
== END 2022-07-05 00:56 ==
LOC: EMS 22:45
DX: S61.219A Laceration without foreign body of unspecified finger without damage to nail, initial encounter (principal); F15.90 Other stimulant use, unspecified, uncomplicated; Z90.49 Acquired absence of other specified parts of digestive tract; W26.0XXA Contact with knife, initial encounter; Y93.89 Activity, other specified; Y92.89 Other specified places as the place of occurrence of the external cause; Y99.8 Other external cause status
CPT/HCPCS: 99284; 90471; 12001; 96372; 90715; J1200; J1630; J2060